=== PATIENT | female | born 1985 | race Caucasian/White ===

== ENCOUNTER 2022-06-03 10:25 | Outpatient (CLI) | payer OTHER, SELFPAY ==
[2022-06-03 11:06] LABS: SARS Antigen* N (Negative)
--- NOTE | 2022-06-03 12:27 | W.ANESCHARGE ---
Anesthesia Charges Start Date/Time Anesthesia Start Date: 06/03/22 Anesthesia Start Time: 11:48 Stop Date/Time Anesthesia Stop Date: 06/03/22 Anesthesia Stop Time: 12:24 Summary Emergency: No
--- NOTE | 2022-06-03 14:00 | W.ANESCHARGE ---
Anesthesia Charges Start Date/Time Anesthesia Start Date: 06/03/22 Anesthesia Start Time: 11:48 Stop Date/Time Anesthesia Stop Date: 06/03/22 Anesthesia Stop Time: 12:24 Summary Emergency: No
== END 2022-06-03 10:26 | disposition home or self-care (01) ==
LOC: OP CLINIC 10:26
PROVIDERS: PCP Family Medicine; Visit Provider Surgery
DX: Z12.11 Encounter for screening for malignant neoplasm of colon (principal); K62.1 Rectal polyp; Z83.71 Family history of colonic polyps
CPT/HCPCS: 00811; 45385; 87426; 88305; J2405

== ENCOUNTER 2022-08-16 07:26 | Outpatient (CLI) | payer OTHER, SELFPAY ==
--- NOTE | 2022-08-16 07:45 | CRLHL7_ITS ---
For Patients: As a result of the Century Cures Act, medical imaging exams and procedure reports are released immediately into your electronic medical record. You may view this report before your referring provider. If you have questions, please contact your health care provider. DIGITAL DIAGNOSTIC BILATERAL MAMMOGRAM USING TOMOSYNTHESIS AND COMPUTER-AIDED DETECTION RIGHT BREAST ULTRASOUND INDICATION: 36-year-old female. Personal history of RIGHT-sided breast cancer (DCIS) 2021. Lumpectomy. Localize radiation therapy. New palpable abnormality central upper RIGHT breast near the nipple. TECHNIQUE: CC and MLO views were obtained. This digital study was evaluated with the assistance of computer-aided detection. Digital breast tomosynthesis utilized. COMPARISON: 05/17/2020. FINDINGS: Breast Composition: The breasts are heterogeneously dense, which may obscure small masses. No suspicious microcalcifications, regions of architecture should distortion, or suspicious microcalcifications. No abnormality in the RIGHT breast to explain the patient`s pain/palpable abnormality. Therefore, ultrasound will be performed for further evaluation. Please see ultrasound report from the same date. IMPRESSION: Essentially stable mammograms. Ultrasound recommended for the palpable abnormality on the RIGHT. TECHNIQUE: Directed RIGHT breast ultrasound with this radiologist present. FINDINGS: The RIGHT breast was carefully scanned at the 10 o`clock position 3 cm from the nipple. Only normal dense breast tissue is identified. No cystic or solid masses. No areas of distortion. These findings were discussed briefly with the patient and the patient`s was present in the room at the time of the examination. The patient is having mammograms every 6 months. She should return to this schedule. BI-RADS Category 1: Negative A lay language report of this examination will be provided to the patient. Dictated by: Isaac Beard MD @08/16/2022 9:14:33 AM j/Dictated by: Isaac Beard MD @ 08/16/2022 9:12:00 AM (Electronically Signed)
--- NOTE | 2022-08-16 08:15 | CRLHL7_ITS ---
For Patients: As a result of the Cures Act, medical imaging exams and procedure reports are released immediately into your electronic medical record. You may view this report before your referring provider. If you have questions, please contact your health care provider. PLEASE SEE DIGITAL DIAGNOSTIC BILATERAL MAMMOGRAM PERFORMED SAME DAY CRL:[email or web address]/Dictated by: Isaac Beard MD @ 08/16/2022 9:14:00 AM (Electronically Signed)
== END 2022-08-16 07:27 | disposition home or self-care (01) ==
PROVIDERS: PCP Family Medicine; Visit Provider Family Medicine
DX: N63.10 Unspecified lump in the right breast, unspecified quadrant (principal); Z85.3 Personal history of malignant neoplasm of breast
CPT/HCPCS: 76642; 77066; G0279

== ENCOUNTER 2024-01-21 11:20 | Outpatient (CLI) | payer OTHER, SELFPAY ==
[2024-01-21 23:00] LABS: Chlamydia DNA Amplified* NOT DETECTED (No Detected); GC DNA Amplified* NOT DETECTED (No Detected)
== END 2024-01-21 11:21 | disposition home or self-care (01) ==
PROVIDERS: PCP Family Medicine; Visit Provider Family Medicine
DX: Z11.3 Encounter for screening for infections with a predominantly sexual mode of transmission (principal); Z13.220 Encounter for screening for lipoid disorders
CPT/HCPCS: 80061; 86703; 86803; 87491; 87591

== ENCOUNTER 2024-07-21 13:23 | Outpatient (CLI) | payer OTHER, SELFPAY ==
[2024-07-21 22:24] LABS: Chlamydia DNA Amplified* NOT DETECTED (No Detected); GC DNA Amplified* NOT DETECTED (No Detected)
== END 2024-07-21 13:24 | disposition home or self-care (01) ==
PROVIDERS: PCP Family Medicine; Visit Provider Family Medicine
DX: R53.83 Other fatigue (principal); Z11.3 Encounter for screening for infections with a predominantly sexual mode of transmission
CPT/HCPCS: 84443; 87491; 87591

== ENCOUNTER 2025-04-27 09:35 | Outpatient (CLI) | payer OTHER, SELFPAY ==
[2025-04-27 15:42] LABS: Chlamydia DNA Amplified* NOT DETECTED (No Detected); GC DNA Amplified* NOT DETECTED (No Detected)
== END 2025-04-27 09:36 | disposition home or self-care (01) ==
PROVIDERS: PCP Family Medicine; Visit Provider Family Medicine
DX: Z11.3 Encounter for screening for infections with a predominantly sexual mode of transmission (principal)
CPT/HCPCS: 86703; 86803; 87491; 87591

== ENCOUNTER 2025-05-03 10:26 | Outpatient (CLI) | payer OTHER, SELFPAY ==
--- NOTE | 2025-05-03 10:45 | CRLHL7_ITS ---
For Patients: As a result of the Cures Act, medical imaging exams and procedure reports are released immediately into your electronic medical record. You may view this report before your referring provider. If you have questions, please contact your health care provider. DIGITAL DIAGNOSTIC BILATERAL MAMMOGRAM USING TOMOSYNTHESIS AND COMPUTER-AIDED DETECTION RIGHT BREAST ULTRASOUND CLINICAL HISTORY: RIGHT breast lump. COMPARISON: 08/16/2022, 05/17/2020, 07/16/2017. TECHNIQUE: Digital BILATERAL mammogram in four projections with computer-aided detection. Tomosynthesis was used in this interpretation. Real-time ultrasound imaging of RIGHT breast with imaging documentation. BREAST COMPOSITION: The breasts are heterogeneously dense, which may obscure small masses. FINDINGS: 3D CC/MLO BILATERAL mammogram images submitted. No suspicious masses or architectural distortion. No suspicious calcifications or adenopathy. Targeted RIGHT breast ultrasound performed in the area of concern. At 12-3 o`clock 4 cm from the nipple there is normal fibroglandular tissue. No fibrocystic change. No solid mass. IMPRESSION: No suspicious findings. No evidence of malignancy. RECOMMENDATIONS: No evidence of malignancy. A lay language report of this examination will be provided to the patient. BI-RADS Category 2: Benign Dictated by Abhishek Serrato MD @ 05/03/2025 11:53:19 AM jj/Dictated by: Abhishek Serrato MD @ 05/03/2025 11:53:00 AM (Electronically Signed)
--- NOTE | 2025-05-03 11:15 | CRLHL7_ITS ---
For Patients: As a result of the Cures Act, medical imaging exams and procedure reports are released immediately into your electronic medical record. You may view this report before your referring provider. If you have questions, please contact your health care provider. SEE DIGITAL DIAGNOSTIC BILATERAL MAMMOGRAM PERFORMED SAME DAY CRL:[email or web address]/Dictated by: Abhishek Serrato MD @ 05/03/2025 11:51:00 AM (Electronically Signed)
== END 2025-05-03 10:27 | disposition home or self-care (01) ==
LOC: MAMMO 10:27
PROVIDERS: PCP Family Medicine; Visit Provider Family Medicine
DX: N63.10 Unspecified lump in the right breast, unspecified quadrant (principal)
CPT/HCPCS: 76642; 77066; G0279